=== PATIENT | male | born 1970 | race Caucasian/White ===

== ENCOUNTER → 2018-04-13 | Emergency (ER) | payer OTHER ==
[~2018-04-13] VITALS: Ht 182.9 cm; Wt 96.0 kg
[~2018-04-13] MED LIST: PRED20TA PO; diphenhydrAMINE 50 mg/ml inj IV ONE; famotidine/PF 10 mg/ml inj IV ONE; methylPREDNISolone sod succ 125mg/2ml vial IV ONE
[2018-04-13 13:00] VITALS: BP 134/77
== END | disposition home or self-care (01) ==
LOC: ER 10:18
DX: T78.3XXA Angioneurotic edema, initial encounter (principal); T46.4X5A Adverse effect of angiotensin-converting-enzyme inhibitors, initial encounter; Y92.89 Other specified places as the place of occurrence of the external cause; I10 Essential (primary) hypertension; E11.9 Type 2 diabetes mellitus without complications
CPT/HCPCS: 36415; 86885; 86900; 86901; 93005; 96374; 96375; 99291; J1200; J2930; J3490; J7030; P9059